=== PATIENT | female | born 1950 | race Caucasian/White ===

== ENCOUNTER 2016-11-01 13:18 | Emergency (ER) | payer BC ==
[2016-11-01] MEDS ORDERED: ONDANSETRON HCL INJ/PF 4 MG/2 ML SDV IV ONE (13:26)
[2016-11-01] MEDS ORDERED: HYDROMORPHONE HCL INJ/PF 2 MG/ML AMPULE IV ONE (13:26)
--- NOTE | 2016-11-01 13:46 | ER Document Report ---
ED Hip Pain/Injury - General Mode of Arrival: Medic Information source: Patient - HPI Patient complains to provider of: Pain, Hip Occurred: Just prior to arrival Onset/Duration: Sudden Quality of pain: Sharp Pain Level: 4 Context: Other - getting into vehicle Skin Color: Normal Rotation of extremity: Inward Pain with palpation of the pelvis: Yes <KAIA MILLER - Last Filed: 11/01/16 14:49> <NANETTE COLBY - Last Filed: 11/01/16 15:01> - General Stated Complaint: HIP PAIN Time Seen by Provider: 11/01/16 13:26 Notes: Patient states that she was getting into her car and twisted feeling her right hip becomes painful. Patient states she has a history of bilateral hip replacement and has had hip dislocations in the past. Patient denies any other injury. Patient is visiting here from out of town. ([place]UL[place]) Past Medical History - General Information source: Patient - Social History Smoking Status: Never Smoker Frequency of alcohol use: None Drug Abuse: None Family History: Reviewed & Not Pertinent - Past Medical History Cardiac Medical History: Reports: Hx Hypertension Endocrine Medical History: Reports: Hx Hypothyroidism Musculoskeltal Medical History: Reports Hx Arthritis - RA Past Surgical History: Reports: Hx Section, Hx Orthopedic Surgery <PAULKAIA Kelly - Last Filed: 11/01/16 14:49> Review of Systems - Review of Systems Constitutional: No symptoms reported. denies: Fever EENT: No symptoms reported Cardiovascular: No symptoms reported Respiratory: No symptoms reported Gastrointestinal: No symptoms reported. denies: Nausea, Vomiting Genitourinary: No symptoms reported Female Genitourinary: No symptoms reported Musculoskeletal: Joint pain - right hip Skin: No symptoms reported Hematologic/Lymphatic: No symptoms reported Neurological/Psychological: No symptoms reported <PAULKAIA Kelly - Last Filed: 11/01/16 14:49> Physical Exam - General General appearance: Appears well, Alert In distress: None - HEENT Head: Normocephalic, Atraumatic Eyes: Normal Nasal: Normal Mouth/Lips: Normal Mucous membranes: Normal Neck: Normal - Respiratory Respiratory status: No respiratory distress Chest status: Nontender Breath sounds: Normal. No: Rales, Rhonchi, Stridor, Wheezing Chest palpation: Normal - Cardiovascular Rhythm: Regular Heart sounds: S1 appreciated Pulses: Normal: Posterior tibial, Dorsalis pedis - Abdominal Inspection: Normal Distension: No distension Tenderness: Nontender - Extremities General upper extremity: Normal inspection, Normal ROM General lower extremity: Tender - right hip tenderness Hip: Tender - right, Dislocation, Pain with ROM, Unable to bear weight, Other - RLE internally rotated Ankle: Normal, Nontender Foot: Normal, Nontender - Neurological Neuro grossly intact: Yes Cognition: Normal Cindy Coma Scale Eye Opening: Spontaneous [place] Coma Scale Verbal: Oriented Cindy Coma Scale Motor: Obeys Commands [place] Coma Scale Total: 15 - Psychological Associated symptoms: Normal affect, Normal mood - Skin Skin Temperature: Warm Skin Moisture: Dry Skin Color: Normal <KAIA MILLER - Last Filed: 11/01/16 14:49> - Vital signs Vitals: Resp 16 11/01/16 13:21 Course - Diagnostic Test Radiology reviewed: Image reviewed, Reports reviewed <KAIA MILLER - Last Filed: 11/01/16 14:49> <NANETTE COLBY - Last Filed: 11/01/16 15:01> - Re-evaluation Re-evalutation: 11/01/16 14:47 Dr Colby to bedside for conscious sedation and reduction. Pt tolerated procedure well. Pt reports pain is improved. Post reduction film reviewed, confirming reduction. (KAIA MILLER) - Vital Signs Vital signs: Temp Pulse Resp BP Pulse Ox 97.8 F 71 16 123/51 L 98 11/01/16 13:25 11/01/16 13:55 11/01/16 13:25 11/01/16 13:25 11/01/16 14:59 Procedures - Conscious Sedation Conscious sedation Time started: 14:29 Time completed: 14:37 Consent obtained: Yes Indication: Right hip dislocation Last meal: 1100 Normal healthy pt.: P1. - ASA Classification Airway Evaluation: Normal anatomy Mallampati Classification: Class 1 Used during procedure: Suction available, IV access obtained, Pulse ox on pt., hospital monitor on pt. Medications administered: Diprivan Reversal agents: None I personally performed/intraservice time: Sedation, Procedure, 30 min or less Complications: No - Joint Reduction/Fracture Care Right Hip Time completed: 14:30 Consent obtained: Yes Conscious sedation: Yes Pre-procedure NV exam: Yes Manipulation comment: [employer] Post-procedure NV exam: Yes Post-reduction x-ray: Joint reduced Reduction attempts: 1 Complications: No <NANETTE COLBY - Last Filed: 11/01/16 15:01> Discharge <KAIA MILLER - Last Filed: 11/01/16 14:49> <NANETTE COLBY - Last Filed: 11/01/16 15:01> - Discharge Clinical Impression: Hip dislocation, right Qualifiers: Encounter type: initial encounter Qualified Code(s): S73.004A - Unspecified dislocation of right hip, initial encounter Condition: Stable Disposition: HOME, SELF-CARE Instructions: Dislocated Artificial Hip ([facility]), Oral Narcotic Medication ([facility]) Additional Instructions: Return immediately for any new or worsening symptoms Followup with your primary care provider, call tomorrow to make a followup appointment Referrals: [facility] ([facility]) [Provider Group] - Follow up as needed
[2016-11-01] MEDS ORDERED: NORMAL SALINE 1000 ML 1,000 ML IV PRN (13:51)
[2016-11-01] MEDS ORDERED: PROPOFOL INJ 200 MG/20 ML VIAL IV ONE (14:10)
--- NOTE | 2016-11-01 14:14 | RADIOLOGY REPORT (SQ) ---
EXAM DESCRIPTION: HIP RIGHT AP/LATERAL COMPLETED DATE/TIME: 11/01/2016 1:59 pm REASON FOR STUDY: pain, ?dislocation COMPARISON: None. NUMBER OF VIEWS: Two views. TECHNIQUE: AP pelvis and additional frog-leg view of the right hip. LIMITATIONS: None. FINDINGS: MINERALIZATION: Normal. RIGHT HIP: Dislocation of the hip prosthesis. LEFT HIP: Intact hip prosthesis. PUBIS AND ISCHIUM: No fracture. PELVIS: No fracture. SACRUM: No fracture or dislocation. No worrisome bone lesions. LOWER LUMBAR SPINE: No fracture or dislocation. No worrisome bone lesions. No significant disc disea se. SOFT TISSUES: No findings. OTHER: No other significant finding. IMPRESSION: DISLOCATION OF THE RIGHT HIP PROSTHESIS. TECHNICAL DOCUMENTATION: JOB ID: [id number] [employer]- All Rights Reserved
--- NOTE | 2016-11-01 15:14 | RADIOLOGY REPORT (SQ) ---
EXAM DESCRIPTION: HIP UNILATERAL-1 VIEW COMPLETED DATE/TIME: 11/01/2016 3:04 pm REASON FOR STUDY: post reduction COMPARISON: 11/01/2016. NUMBER OF VIEWS: One view. TECHNIQUE: AP view of the right hip. LIMITATIONS: None. FINDINGS: MINERALIZATION: Normal. RIGHT HIP: Satisfactory position of the hip prosthesis following closed reduction. No fracture or di slocation. No worrisome bone lesions. SOFT TISSUES: No findings. OTHER: No other significant finding. IMPRESSION: SATISFACTORY POSITION OF THE RIGHT HIP PROSTHESIS FOLLOWING CLOSED REDUCTION. TECHNICAL DOCUMENTATION: JOB ID: [id number] [employer]- All Rights Reserved
[2016-11-01] MEDS ORDERED: HYDROCODONE/ACETAMINOPHEN 5-325 MG TABLET PO ONE (15:28)
[2016-11-01 16:16] VITALS: BP 137/65
== END 2016-11-01 16:16 | disposition home or self-care (01) ==
LOC: ER 13:18
PROC: 0SS9XZZ Reposition Right Hip Joint, External Approach (ICD-10-PCS; principal; 2016-11-01)
DX: S73.004A Unspecified dislocation of right hip, initial encounter (principal); M25.551 Pain in right hip; Z96.643 Presence of artificial hip joint, bilateral; X58.XXXA Exposure to other specified factors, initial encounter
CPT/HCPCS: 99284; 99152; 73501; 73502; 27250; J2704